=== PATIENT | male | born 1985 | race Caucasian/White ===

== ENCOUNTER 2021-04-08 11:50 | Inpatient (IN) | payer OTHER, SELFPAY ==
[2021-04-08] VITALS (19 sets, daily range): BP systolic 108–150; BP diastolic 60–90; PULSE 94–114; RESP 10–22; TEMP 36.4–37.4; O2SAT 97–100; BMI 28.8
--- NOTE | ~2021-04-08 | CT_ITS ---
EXAMINATION: CT abdomen pelvis wo con EXAM DATE: 04/08/2021 23:57 INDICATION: Diarrhea, fever . TECHNIQUE: Spiral CT of the abdomen and pelvis was performed without contrast. Axial, coronal and s agittal images of the abdomen and pelvis were reviewed. The dose-length product (DLP) for this exami nation was 482.65 mGy-cm. The exposure was tailored according to patient size (auto mA exposure cont rol), and iterative reconstruction (ASIR) was used as additional dose reduction technique. There is no prior study for comparison. FINDINGS: There is mild terminal ileal wall thickening, mild adjacent inflammation. Appearance consis tent with terminal ileitis. Could be infectious or inflammatory bowel disease. There is colonic fluid , correlate for diarrhea or gastroenteritis. Left adrenal calcifications probably from prior adrenal hemorrhage or tuberculosis. Both adrenal glan ds are normal in size. Liver, spleen, pancreas are unremarkable. There is indistinct gallbladder wal l. No calcified cholelithiasis and only mild gallbladder distention. There is no nephrolithiasis or hydronephrosis. The prostate is unremarkable. The bladder is unremarkable. There is no retroperit rajan or pelvic lymphadenopathy. No free intraperitoneal gas. The heart is normal in size. There are no pericardial or pleural effu sions. The lung bases are unremarkable. There are no osteoblastic or osteolytic lesions identified. IMPRESSION: 1. Terminal ileal edema, colonic fluid. Consider infectious terminal ileitis, inflammatory bowel dise ase, gastroenteritis. 2. Indistinct gallbladder wall, could be reactive given no calcified cholelithiasis, significant gall bladder distention or clinically suspicious clinical findings. Reviewed, dictated and finalized at location [facility] [employer] IMPRESSION: 1. Terminal ileal edema, colonic fluid. Consider infectious terminal ileitis, i nflammatory bowel disease, gastroenteritis. 2. Indistinct gallbladder wall, could be reactive given no calcified cholelithi asis, significant gallbladder distention or clinically suspicious clinical find ings.
[2021-04-08 12:34] LABS: Hematocrit 49.1 % (42.0-52.0); Hemoglobin 16.9 g/dL (14.0-18.0); Mean Corpuscular HGB Conc 34.4 g/dl (32-36); Mean Corpuscular Hemoglobin 29.4 pg (26-34); Mean Corpuscular Volume 85.5 fl (80-100); Mean Platelet Volume 8.8 fl (7.4-10.4); Platelet Count Result 192 k/mm3 (150-375); Red Blood Count 5.74 M/mm3 (4.6-6.20); Red Cell Distribution Width 13.5 % (11.5-14.5)
[2021-04-08 13:00] LABS: Alanine Aminotransferase 28 U/L (4-50); Albumin Level 4.4 g/dL (3.5-5.1); Alkaline Phosphatase 57 U/L (38-126); Anion Gap 13 mmol/L (8-16); Aspartate Amino Transferase 33 U/L (17-59); Bilirubin,Total 1.2 mg/dL (0.2-1.3); Blood Urea Nitrogen 24 mg/dL (9-20); Calcium 9.5 mg/dL (8.4-10.2); Carbon Dioxide 22 mmol/L (22-30); Chloride 98 mmol/L (98-107); Estimated CRCL calculation 50 ml/min; Estimated Glomerular Filt Rate 43; Glucose 124 mg/dL (65-110); Lipase 44 U/L (23-300); Potassium 4.1 mmol/L (3.4-5.0); Sodium 133 mmol/L (137-145)
[2021-04-08 13:31] LABS: Atypical Lymphocytes Present; Band Neutrophils Percent 46 % (0-6); Giant Platelets Present; Large Platelets Present; Lymphocytes Absolute Manual 0.84 K/mm3 (1.1-4.5); Monocytes Absolute Manual 0.42 K/mm3 (0.1-0.90); Monocytes Percent Manual 6 % (3-9); Neutrophils Absolute Manual 5.74 K/mm3 (1.3-6.7); Neutrophils Percent Manual 36 % (46-73); Platelet Estimate Adequate (Adequate); Total Cells Counted 100
--- NOTE | 2021-04-08 14:13 | ED.NAVMDI ---
HPI - Nausea/Vomiting/Diarrhea General Chief complaint: Nausea/Vomiting/Diarrhea Stated complaint: diarrhea x 24 hours Time Seen by Provider: 04/08/21 14:03 Source: patient Mode of arrival: ambulatory Limitations: no limitations History of Present Illness HPI Narrative: Patient presents with extensive diarrhea over the last 24 hours, about 40-50 times, vomiting once. Also complaining of possible fever and chills. Patient is fully vaccinated for COVID-19, last one 3 to 4 months ago. Patient also had Covid infection 1 to 2 months ago. Patient still me that he had history of C. difficile 10 years ago of unknown etiology. Related Data Home Medications Medication Instructions Recorded Confirmed No Home Medications 04/08/21 04/08/21 Allergies Allergy/AdvReac Type Severity Reaction Status Date / Time meperidine Allergy Unknown HIVES Verified 04/08/21 13:57 Review of Systems Review of Systems: CONSTITUTIONAL: Denies fever, chills, or sweats. EYES: Denies visual changes, redness, or discharge. ENT: Denies rhinorrhea, congestion, sore throat, or otalgia. CARDIOVASCULAR: Denies chest pain, palpitations, or edema. RESPIRATORY: Denies cough or dyspnea. GASTROINTESTINAL: Denies abdominal pain, nausea, vomiting, or diarrhea. GENITOURINARY: Denies dysuria or hematuria. SKIN: Denies rash or itching. MUSCULOSKELETAL: Denies back pain, joint pain, or myalgia. NEUROLOGIC: Denies headache, numbness, or weakness. PSYCHIATRIC: Denies anxiety or depression. PMFSH Social History Social History Smoking status: Never smoker Alcohol intake: current Exam Narrative: General appearance: Well-developed, well-nourished Skin: Normal color Head: Normocephalic, nontraumatic Eyes: Clear conjunctiva ENT: Oropharynx normal, ears normal, nose normal Neck: Supple, nontender Chest and respiratory: Airway patent, no respiratory distress, no accessory muscle use Heart: Regular rate/rhythm Abdomen: Soft, nontender, no organomegaly, hyperactive bowel sounds Vascular: Normal peripheral pulses, normal capillary refill. Musculoskeletal: Normal range of motion, nontender back Neurologic: Alert and oriented ?3, [employer] is normal as tested, no gross motor deficit Course Course Emergency Course: Improving Vital Signs Vital signs: Vital Signs Pulse Rate 107 H 04/08/21 11:55 Respiratory Rate 20 04/08/21 11:55 Blood Pressure 133/86 04/08/21 11:55 Pulse Oximetry 98 04/08/21 11:55 Pulse Rate 107 H 04/08/21 11:55 Respiratory Rate 20 04/08/21 11:55 Blood Pressure 133/86 04/08/21 11:55 Pulse Oximetry 98 04/08/21 11:55 MDM - Nausea/Vomiting/Diarrhea MDM Narrative Medical decision making narrative: Patient presents with extensive diarrhea. Viral infection is my concern. Labs, IV fluid ordered. Differential diagnosis Differential Diagnosis Differential diagnosis: Likely gastroenteritis, clostridium difficile infection and dehydration Lab Data Result diagrams: 04/08/21 12:26 04/08/21 12:26 Labs: Lab Results 04/08/21 04/08/21 04/08/21 Range/Units 12:26 12:26 14:08 WBC 7.0 (4.5-10.0) K/mm3 RBC 5.74 (4.6-6.20) M/mm3 Hgb 16.9 (14.0-18.0) g/dL Hct 49.1 (42.0-52.0) % MCV 85.5 (80-100) fl MCH 29.4 (26-34) pg MCHC 34.4 (32-36) g/dl RDW 13.5 (11.5-14.5) % Plt Count 192 (150-375) k/mm3 MPV 8.8 (7.4-10.4) fl Immature Gran % (Auto) Not Reportable Neut % (Auto) Not Reportable Lymph % (Auto) Not Reportable [place] % (Auto) Not Reportable Eos % (Auto) Not Reportable Baso % (Auto) Not Reportable
[2021-04-08] MEDS: SODIUM CHLORIDE 0.9% IV 1,000 ML 999 ML IV CONT ×2 (14:32)
[2021-04-08 14:52] LABS: Add Urine Microscopic? YES; Appearance Urine Cloudy (Clear); Bacteria Urine Trace /hpf; Bilirubin Urine Negative (Negative); Blood Urine Negative (Negative); Cellular Casts Urine Present /lpf; Color Urine Amber (Yellow); Glucose Urine UA Negative (Negative); Hyaline Casts Urine 15-19 /lpf; Ketones Urine 1+ mg/dL (Negative); Leukocyte Esterase Ur Negative LEU/UL (Negative); Mucus Urine Few /lpf; Nitrate Urine Negative (Negative); Protein Urine 1+ mg/dL (Negative); RBC Urine 0-2 /hpf (0-2); Specific Grav Ur 1.029 (1.001-1.035); Squamous Epithelial Cell Urine Occasional /hpf (Few)
--- NOTE | 2021-04-08 17:25 | ADMGEN ---
This patient, Tramaine Hein, was admitted to Medical Room 341-01. Patient/family oriented to hospital policies and general routines including ID bracelet, bed and alarms, visiting hours, pain management, procedures, bathroom and other care routines, personal items, smoking policy, room service/diet, and visiting hours. Information on how to activate the Rapid Response Team has been discussed. Patient/Family are encouraged to report perceived risks to care and to ask questions if they do not understand what they are told or what they should do.
--- NOTE | 2021-04-08 18:15 | PM.IMHP ---
H&P: HPI History of Present Illness Date/Time: 04/08/21 18:15 Chief Complaint: Diarrhea. Narrative: This is a 35-year-old male with history of Clostridium difficile diarrhea approximately 10 years ago who presented to the emergency department earlier this afternoon via private vehicle from home for evaluation of diarrhea.Yesterday morning the patient his went on a hike and when he returned home he began having diarrhea which he describes as light brown and watery in nature. The patient estimates that he had between 40 and 50 episodes of diarrhea yesterday and at least 10 today. He has also had chills, sweats, and subjective fever with a temperature of 99.4? F on arrival to the emergency department today. He has ?rumbling? in his abdomen prior to having diarrhea but he denies abdominal pain. He has not had any significant nausea or vomiting. He had nothing to eat the morning of the hike. No recent travel, camping activities, preparation of raw meat or fish, antibiotic use, or sick contacts. He has not noticed any blood or mucus in the stool. Review of Systems Review of Systems: Twelve systems were reviewed. No cold or flu symptoms. He is vaccinated for COVID-19 and in fact he had COVID in January 2021. No cough. No chest pain or shortness of breath. He has noticed that his urine is darker over the last day with a decrease in urine output. He endorses mild body aches. No significant muscle cramping. He denies lightheadedness and dizziness. Except as documented, all other systems were reviewed and are negative. COUNT INCLUDES [facility] Past Medical History Medical History Clostridium difficile diarrhea (~2010) Ventral hernia Surgical History Surgical History (Updated 04/08/21 @ 20:51 by Clare Al PA-C) History of appendectomy Status post repair of complex wound (08/15/06) Debridement of traumatized tissue and V-Y advancement flap reconstruction of left long finger. Family History Family History Son Celiac disease Daughter Celiac disease Social History Social History (Updated 04/08/21 @ 20:52 by Clare Al PA-C) Social History: Surrogate decision maker: Chanel Hein, spouse. Code status: Full code. Smoking status: Never smoker Second hand tobacco smoke exposure: Yes Alcohol intake: never Substance use: never Substance use type: does not use Additional living arrangements comments: The patient lives in [place] with his and their 4 children. Additional occupation/education comments: [employer]. Meds Home Medications and Allergies Home Medications Medication Instructions Recorded Confirmed Type No Home Medications 04/08/21 04/08/21 History Allergies Allergy/AdvReac Type Severity Reaction Status Date / Time meperidine Allergy Unknown HIVES Verified 04/08/21 17:45 Vital Signs Vital Signs - 24 hr 04/08/21 11:55 04/08/21 14:00 04/08/21 14:01 Pulse Rate 107 H 98 104 H Respiratory Rate 20 17 10 L Blood Pressure 133/86 148/84 H Pulse Oximetry 98 100 04/08/21 14:15 04/08/21 14:16 04/08/21 14:30 Pulse Rate 95 99 96 Respiratory Rate 14 18 15 Blood Pressure 125/79 Pulse Oximetry 100 98 99 04/08/21 14:31 04/08/21 14:45 04/08/21 14:46 Pulse Rate 95 95 101 H Respiratory Rate 18 22 H 19 Blood Pressure 131/83 144/77 H Pulse Oximetry 99 99 100 04/08/21 15:00 04/08/21 15:01 04/08/21 15:15 Pulse Rate 95 98 96 Respiratory Rate 16 20 14 Blood Pressure 130/90 Pulse Oximetry 100 100 04/08/21 15:16 04/08/21 15:30 04/08/21 15:31 Pulse Rate 95 103 H 102 H Respiratory Rate 14 13 18 Blood Pressure 114/60 133/87 Pulse Oximetry 100 100 04/08/21 15:45 04/08/21 15:46 Pulse Rate 104 H 107 H Respiratory Rate 16 20 Blood Pressure 113/60 Pulse Oximetry Exam Narrative: General: Mildly ill-appearing male supine in bed. Weight:
[2021-04-08] MEDS: SODIUM CHLORIDE 0.9% IV 1,000 ML 200 ML IV CONT (18:22)
[2021-04-08 20:39] LABS: Hematocrit 42.2 % (42.0-52.0); Hemoglobin 14.6 g/dL (14.0-18.0); Mean Corpuscular HGB Conc 34.6 g/dl (32-36); Mean Corpuscular Hemoglobin 29.8 pg (26-34); Mean Corpuscular Volume 86.1 fl (80-100); Mean Platelet Volume 8.9 fl (7.4-10.4); Platelet Count Result 168 k/mm3 (150-375); Red Cell Distribution Width 13.4 % (11.5-14.5); White Blood Count 4.9 K/mm3 (4.5-10.0)
[2021-04-08 20:50] LABS: Lactic Acid Reflex 0.8 mmol/L (0.7-2.1)
[2021-04-08 20:51] LABS: Anion Gap 9 mmol/L (8-16); Blood Urea Nitrogen 20 mg/dL (9-20); Calcium 8.4 mg/dL (8.4-10.2); Carbon Dioxide 21 mmol/L (22-30); Chloride 103 mmol/L (98-107); Estimated CRCL calculation 63 ml/min; Estimated Glomerular Filt Rate 57; Glucose 116 mg/dL (65-110); Magnesium 1.8 mg/dL (1.6-2.3); Potassium 3.7 mmol/L (3.4-5.0); Sodium 133 mmol/L (137-145)
[2021-04-08 21:15] LABS: Band Neutrophils Percent 60 % (0-6); Lymphocytes Absolute Manual 0.78 K/mm3 (1.1-4.5); Monocytes Absolute Manual 0.34 K/mm3 (0.1-0.90); Monocytes Percent Manual 7 % (3-9); Neutrophils Absolute Manual 3.77 K/mm3 (1.3-6.7); Neutrophils Percent Manual 17 % (46-73); Total Cells Counted 100
[2021-04-08 21:16] LABS: Platelet Estimate Adequate (Adequate)
[2021-04-08] MEDS: SODIUM CHLORIDE 0.9% IV 1,000 ML 150 ML IV CONT ×2 (21:42→21:43)
[2021-04-08] MEDS: metroNIDAZOLE 500 MG/ISO 100ML 500 MG/100 ML BAG 100 MG IVPB (23:13)
[2021-04-09] MEDS: SODIUM CHLORIDE 0.9% IV 1,000 ML 150 ML IV CONT ×2 (02:46→09:01)
[2021-04-09 05:02] VITALS: TEMP 38.2
[2021-04-09] MEDS: metroNIDAZOLE 500 MG/ISO 100ML 500 MG/100 ML BAG 100 MG IVPB ×4 (05:06→23:41)
[2021-04-09 06:00] VITALS: BP 132/59; PULSE 108; RESP 20; TEMP 38.2; O2SAT 96
[2021-04-09 06:25] LABS: Hematocrit 39.4 % (42.0-52.0); Hemoglobin 13.9 g/dL (14.0-18.0); Mean Corpuscular HGB Conc 35.3 g/dl (32-36); Mean Corpuscular Hemoglobin 29.4 pg (26-34); Mean Corpuscular Volume 83.3 fl (80-100); Mean Platelet Volume 9.5 fl (7.4-10.4); Platelet Count Result 163 k/mm3 (150-375); Red Blood Count 4.73 M/mm3 (4.6-6.20); Red Cell Distribution Width 13.2 % (11.5-14.5); White Blood Count 4.4 K/mm3 (4.5-10.0)
[2021-04-09 06:26] LABS: Alanine Aminotransferase 21 U/L (4-50); Albumin Level 3.3 g/dL (3.5-5.1); Alkaline Phosphatase 49 U/L (38-126); Anion Gap 8 mmol/L (8-16); Aspartate Amino Transferase 25 U/L (17-59); Bilirubin,Total 0.5 mg/dL (0.2-1.3); Blood Urea Nitrogen 15 mg/dL (9-20); Carbon Dioxide 19 mmol/L (22-30); Chloride 104 mmol/L (98-107); Estimated CRCL calculation 73 ml/min; Estimated Glomerular Filt Rate > 60; Glucose 106 mg/dL (65-110); Magnesium 1.6 mg/dL (1.6-2.3); Potassium 3.3 mmol/L (3.4-5.0); Sodium 131 mmol/L (137-145)
[2021-04-09 07:33] LABS: Atypical Lymphocytes Present; Band Neutrophils Percent 34 % (0-6); Lymphocytes Absolute Manual 0.88 K/mm3 (1.1-4.5); Metamyelocytes Percent 1 %; Monocytes Absolute Manual 0.22 K/mm3 (0.1-0.90); Monocytes Percent Manual 5 % (3-9); Neutrophils Absolute Manual 3.25 K/mm3 (1.3-6.7); Neutrophils Percent Manual 40 % (46-73); Total Cells Counted 100
[2021-04-09 07:34] LABS: Platelet Estimate Adequate (Adequate)
[2021-04-09] MEDS: POTASSIUM CHLORIDE 20 MEQ TABLET 60 MEQ PO (09:00)
[2021-04-09] MEDS: MAGNESIUM SULFATE 3GM/D5W100ML 3 GM/100 ML BAG IVPB (09:04)
--- NOTE | 2021-04-09 10:24 | PM.IMPN ---
Progress Note: A&P Assessment and Plan (1) Diarrhea: Qualifiers: Diarrhea type: unspecified type Qualified Code(s): R19.7 - Diarrhea, unspecified Code(s): R19.7 - Diarrhea, unspecified Status: Acute Assessment and Plan: The patient reports upwards of 50 to 60 episodes of watery diarrhea over the past 36 hours or so. Suspect infectious given low-grade fever and bandemia. He has been started on metronidazole and levofloxacin pending stool studies. Patient denies much improvement with IV Levaquin and Flagyl Stool cultures are negative for C diff and Cryptosporidium Pending blood cultures, and further stool cultures Pending stool rotavirus and norovirus Will switch to a regular diet and banatrol t.i.d. to help thicken is stools He appears well hydrated at this time with improvement of his renal function and electrolytes. Continue monitoring. (2) Sepsis: Code(s): A41.9 - Sepsis, unspecified organism Status: Acute Assessment and Plan: Meets criteria for sepsis in the setting of fever, tachycardia, bandemia with most likely source being infectious terminal ileitis IV fluids IV antibiotics Blood cultures and stool culture still pending Continue monitoring. (3) Dehydration: Code(s): E86.0 - Dehydration Status: Acute Assessment and Plan: The patient appears quite dehydrated on exam and by labs and he is being aggressively hydrated. (4) Acute kidney injury: Code(s): N17.9 - Acute kidney failure, unspecified Status: Acute Assessment and Plan: Secondary to hypovolemia from GI loss, he is quite dehydrated. Creatinine improved 1.2 today with IV fluids. Will continue with IV fluid hydration at this time and monitor renal function electrolytes. (5) Bandemia: Code(s): D72.825 - Bandemia Status: Acute Assessment and Plan: Blood cultures pending. Lactic acid was normal. Keep monitoring CBC with diff daily. Time Spent With Patient Time with patient: 25 - 35 minutes Subjective Date/time seen: 04/09/21 10:24 Interval history: Date of Service 04/09/21: Patient reports continuing to have diarrhea. He reports 10-15 episodes just this morning. He denies any abdominal pain just diffuse discomfort and ?gurgling?. He has some lack of appetite, but denies any nausea or vomiting. He did have a fever this morning, denies any chest pain, shortness of breath, cough, leg swelling, calf pain, sick contacts, family members with similar issues or any other symptoms at this time. Patient's states they have multiple animals at home which include chickens, bearded Dragon, etc. Review of Systems Review of Systems: All systems reviewed & are unremarkable except as noted in HPI and below Exam Narrative: General: 35-year-old man laying flat in bed with at bedside. Appears comfortable. In no acute distress. Skin: No jaundice or cyanosis. Good skin turgor. Neck: Full range of motion. Supple. Respiratory: Lungs are clear to auscultation bilaterally. No bony chest wall tenderness. Cardiovascular: The heart has a regular rate and rhythm without murmur. Lower extremities: No lower extremity edema. Distal pulses are easily palpated. No calf tenderness to palpation. Gastrointestinal: No specific TTP on exam. Bowel sounds active but does not appear hyperactive. The abdomen is soft, nondistended. Psychiatric: Lucid and oriented. Memory intact. Neurologic: No focal deficits. Speech is clear. No facial drooping. Objective Data Vital Signs Vital Signs: Vital Signs - 24 hr 04/08/21 11:55 04/08/21 14:00 04/08/21 14:01 Temperature Pulse Rate 107 H 98 104 H Respiratory Rate 20 17 10 L Blood Pressure 133/86 148/84 H Pulse Oximetry 98 100 04/08/21 14:15 04/08/21 14:16 04/08/21 14:30 Temperature Pulse Rate 95 99 96 Respiratory Rate 14 18 15 Blood Pressure 125/79 Pulse Oximetry 100 98 99 1
[2021-04-09 14:13] VITALS: BP 110/64; PULSE 89; RESP 18; TEMP 36.9; O2SAT 99
[2021-04-09 14:32] LABS: Anion Gap 7 mmol/L (8-16); Blood Urea Nitrogen 14 mg/dL (9-20); Calcium 8.1 mg/dL (8.4-10.2); Carbon Dioxide 23 mmol/L (22-30); Chloride 105 mmol/L (98-107); Estimated CRCL calculation 68 ml/min; Estimated Glomerular Filt Rate > 60; Glucose 98 mg/dL (65-110); Potassium 3.8 mmol/L (3.4-5.0); Sodium 135 mmol/L (137-145)
[2021-04-09 19:18] VITALS: BP 102/64; PULSE 83; RESP 16; TEMP 36.5; O2SAT 98
[2021-04-09 20:00] VITALS: PULSE 83; RESP 16; O2SAT 98
[2021-04-09] MEDS: SODIUM CHLORIDE 0.9% IV 1,000 ML 85 ML IV CONT (21:22)
[2021-04-10 04:22] VITALS: BP 98/54; PULSE 77; RESP 17; TEMP 36.5; O2SAT 98
[2021-04-10 04:48] LABS: Basophils Absolute Auto 0.1 K/mm3 (0.0-0.1); Basophils Percent Auto 0.8 % (0.2-1.2); Eosinophils Absolute Auto 0.2 K/mm3 (0-0.3); Eosinophils Percent Auto 3.4 % (0-4.4); Hematocrit 39.9 % (42.0-52.0); Immature Granulocyte Absolute 0.03 K/mm3 (0.00-0.031); Immature Granulocyte Percent A 0.5 % (0-0.5); Lymphocytes Absolute Auto 1.25 K/mm3 (0.9-3.2); Lymphocytes Percent Auto 21.1 % (18.3-44.2); Mean Corpuscular HGB Conc 35.1 g/dl (32-36); Mean Corpuscular Hemoglobin 29.8 pg (26-34); Mean Corpuscular Volume 84.9 fl (80-100); Mean Platelet Volume 9.3 fl (7.4-10.4); Monocytes Absolute Auto 0.6 K/mm3 (0.1-0.6); Monocytes Percent Auto 10.5 % (2.6-8.5); Neutrophils Absolute Auto 3.8 K/mm3 (1.3-6.7); Neutrophils Percent Auto 63.7 % (45.5-73.1); Platelet Count Result 177 k/mm3 (150-375); Red Cell Distribution Width 13.6 % (11.5-14.5); White Blood Count 5.9 K/mm3 (4.5-10.0)
[2021-04-10 05:03] LABS: Anion Gap 8 mmol/L (8-16); Blood Urea Nitrogen 11 mg/dL (9-20); Calcium 8.1 mg/dL (8.4-10.2); Carbon Dioxide 23 mmol/L (22-30); Chloride 107 mmol/L (98-107); Estimated CRCL calculation 87 ml/min; Estimated Glomerular Filt Rate > 60; Glucose 89 mg/dL (65-110); Potassium 3.8 mmol/L (3.4-5.0); Sodium 138 mmol/L (137-145)
[2021-04-10] MEDS: metroNIDAZOLE 500 MG/ISO 100ML 500 MG/100 ML BAG 100 MG IVPB ×4 (05:52→23:40)
[2021-04-10 10:33] VITALS: O2SAT 97
--- NOTE | 2021-04-10 11:15 | PM.IMPN ---
Progress Note: A&P Assessment and Plan (1) Diarrhea: Qualifiers: Diarrhea type: unspecified type Qualified Code(s): R19.7 - Diarrhea, unspecified Code(s): R19.7 - Diarrhea, unspecified Status: Acute Assessment and Plan: The patient reports upwards of 50 to 60 episodes of watery diarrhea over the past 36 hours or so. Suspect infectious given low-grade fever and bandemia. He has been started on metronidazole and levofloxacin pending stool studies. He is having some improvement with IV Levaquin and Flagyl at this time Stool cultures are negative for C diff and Cryptosporidium Blood cultures negative to date Pending stool rotavirus and norovirus Will switch to a regular diet and we are out of banatrol. Will order Fiber to help bulken stool. He appears well hydrated at this time with improvement of his renal function and electrolytes. Will continue IV fluids since he is still having 20-25 episodes of diarrhea to prevent dehydration Continue monitoring. (2) Sepsis: Code(s): A41.9 - Sepsis, unspecified organism Status: Acute Assessment and Plan: Meets criteria for sepsis in the setting of fever, tachycardia, bandemia with most likely source being infectious terminal ileitis No more bandemia. Labs stable, vitals stable. Continue IV fluids IV antibiotics Continue monitoring. (3) Dehydration: Code(s): E86.0 - Dehydration Status: Acute Assessment and Plan: The patient appears quite dehydrated on arrival. Much improved at this time. Concerned he would get dehydration with continued diarrhea if we were to stop IV fluids. (4) Acute kidney injury: Code(s): N17.9 - Acute kidney failure, unspecified Status: Acute Assessment and Plan: Secondary to hypovolemia from GI loss, he is quite dehydrated. Creatinine improved 1.0 today with IV fluids. Will continue with IV fluid hydration at this time and monitor renal function electrolytes. (5) Bandemia: Code(s): D72.825 - Bandemia Status: Acute Assessment and Plan: Blood cultures pending. Lactic acid was normal. Resolved. Time Spent With Patient Time with patient: 25 - 35 minutes Subjective Date/time seen: 04/10/21 11:15 Interval history: Date of Service 04/10/21: Patient reports continuing to have diarrhea, but states in the last 24 hours has had 20-25 bowel movement which is an improvement from 40-50 from the day prior. He is feeling better, continues to have abdominal cramping. Eating and drinking well. Denies lightheadedness, dizziness, nausea or vomiting. He denies anymore fevers but states he was taking Tylenol overnight to help him sleep. Denies any chest pain, shortness of breath, cough, leg swelling, calf pain, sick contacts, family members with similar issues or any other symptoms at this time. Patient's states they have multiple animals at home which include chickens, bearded Dragon, etc. Review of Systems Review of Systems: All systems reviewed & are unremarkable except as noted in HPI and below Exam Narrative: General: 35-year-old man laying flat in bed watching TV. Appears comfortable. In no acute distress. Skin: No jaundice or cyanosis. Good skin turgor. Neck: Full range of motion. Supple. Respiratory: Lungs are clear to auscultation bilaterally. No bony chest wall tenderness. Cardiovascular: The heart has a regular rate and rhythm without murmur. Lower extremities: No lower extremity edema. Distal pulses are easily palpated. No calf tenderness to palpation. Gastrointestinal: No specific TTP on exam. Bowel sounds active in all 4 quadrants. The abdomen is soft, nondistended. Psychiatric: Lucid and oriented. Memory intact. Neurologic: No focal deficits. Speech is clear. No facial drooping. Objective Data Vital Signs Vital Signs: Vital Signs - 24 hr 04/09/21 14:13 04/09/21 19:18 04/09/21 20:00 Temperature 98.5 F
[2021-04-10] MEDS: SODIUM CHLORIDE 0.9% IV 1,000 ML 85 ML IV CONT (11:45)
[2021-04-10] MEDS: calcium polycarbophiL 625 MG TABLET PO ×2 (13:30→18:09)
[2021-04-10 14:20] VITALS: BP 100/51; PULSE 85; RESP 16; TEMP 36.9; O2SAT 100
[2021-04-10 20:00] VITALS: PULSE 85; RESP 16; O2SAT 100
[2021-04-10 20:21] VITALS: PULSE 82; RESP 16; O2SAT 97
[2021-04-10 20:31] VITALS: BP 106/58; PULSE 89; RESP 18; TEMP 36.9; O2SAT 98
[2021-04-11] MEDS: SODIUM CHLORIDE 0.9% IV 1,000 ML 100 ML IV CONT (03:44)
[2021-04-11] MEDS: metroNIDAZOLE 500 MG/ISO 100ML 500 MG/100 ML BAG 100 MG IVPB ×2 (05:52→12:31)
[2021-04-11 05:57] VITALS: BP 125/65; PULSE 80; RESP 17; TEMP 36.6; O2SAT 98
[2021-04-11 06:00] LABS: Basophils Absolute Auto 0.1 K/mm3 (0.0-0.1); Basophils Percent Auto 0.6 % (0.2-1.2); Eosinophils Absolute Auto 0.3 K/mm3 (0-0.3); Eosinophils Percent Auto 3.3 % (0-4.4); Hematocrit 38.1 % (42.0-52.0); Hemoglobin 13.4 g/dL (14.0-18.0); Immature Granulocyte Absolute 0.05 K/mm3 (0.00-0.031); Immature Granulocyte Percent A 0.6 % (0-0.5); Lymphocytes Absolute Auto 1.53 K/mm3 (0.9-3.2); Lymphocytes Percent Auto 16.9 % (18.3-44.2); Mean Corpuscular HGB Conc 35.2 g/dl (32-36); Mean Corpuscular Hemoglobin 29.8 pg (26-34); Mean Corpuscular Volume 84.7 fl (80-100); Mean Platelet Volume 9.1 fl (7.4-10.4); Monocytes Absolute Auto 0.9 K/mm3 (0.1-0.6); Monocytes Percent Auto 9.5 % (2.6-8.5); Neutrophils Absolute Auto 6.2 K/mm3 (1.3-6.7); Neutrophils Percent Auto 69.1 % (45.5-73.1); Platelet Count Result 204 k/mm3 (150-375); Red Cell Distribution Width 13.8 % (11.5-14.5)
[2021-04-11 06:12] LABS: Anion Gap 11 mmol/L (8-16); Blood Urea Nitrogen 6 mg/dL (9-20); Calcium 8.1 mg/dL (8.4-10.2); Carbon Dioxide 23 mmol/L (22-30); Chloride 106 mmol/L (98-107); Estimated CRCL calculation 87 ml/min; Estimated Glomerular Filt Rate > 60; Glucose 95 mg/dL (65-110); Magnesium 1.6 mg/dL (1.6-2.3); Potassium 3.6 mmol/L (3.4-5.0); Sodium 140 mmol/L (137-145)
[2021-04-11] MEDS: POTASSIUM CHLORIDE 20 MEQ TABLET 40 MEQ PO (09:09)
[2021-04-11] MEDS: calcium polycarbophiL 625 MG TABLET PO (09:09)
[2021-04-11] MEDS: MAGNESIUM SULFATE 3GM/D5W100ML 3 GM/100 ML BAG IVPB (09:44)
--- NOTE | 2021-04-11 10:19 | PM.IMPN ---
Progress Note: A&P Assessment and Plan (1) Diarrhea: Qualifiers: Diarrhea type: unspecified type Qualified Code(s): R19.7 - Diarrhea, unspecified Code(s): R19.7 - Diarrhea, unspecified Status: Acute Assessment and Plan: The patient reports upwards of 50 to 60 episodes of watery diarrhea over the past 36 hours or so. Suspect infectious given low-grade fever and bandemia. He has been started on metronidazole and levofloxacin pending stool studies. He is having some improvement with IV Levaquin and Flagyl # Stool cultures are negative for C diff and Cryptosporidium Blood cultures negative to date Pending stool rotavirus and norovirus Will switch to a regular diet and we are out of banatrol. Continue on Fiber to help bulken stool. He appears well hydrated at this time with improvement of his renal function and electrolytes. Will discontinue IV fluids at this time and monitor hydration and BP Consulted Dr. Stephane BLOCK for further evaluation and recommendations due to Terminal ileitis? possible Crohn's? Diarrhea assistance. Continue monitoring. (2) Ileitis, terminal: Code(s): K50.00 - Crohn's disease of small intestine without complications Status: Acute Assessment and Plan: See above (3) Sepsis: Code(s): A41.9 - Sepsis, unspecified organism Status: Acute Assessment and Plan: Meets criteria for sepsis in the setting of fever, tachycardia, bandemia with most likely source being infectious terminal ileitis No more bandemia. Labs stable, vitals stable. Discontinue IV fluids IV antibiotics Continue monitoring. (4) Dehydration: Code(s): E86.0 - Dehydration Status: Acute Assessment and Plan: The patient was quite dehydrated on arrival. Much improved at this time. Will D/c IV fluids (5) Acute kidney injury: Code(s): N17.9 - Acute kidney failure, unspecified Status: Acute Assessment and Plan: Secondary to hypovolemia from GI loss, he is quite dehydrated. Creatinine stable 1.0 today Continue monitoring renal function electrolytes. (6) Bandemia: Code(s): D72.825 - Bandemia Status: Acute Assessment and Plan: Blood cultures show no growth at this time. Lactic acid was normal. Resolved. Time Spent With Patient Time with patient: 25 - 35 minutes Subjective Date/time seen: 04/11/21 10:19 Interval history: Date of Service 04/11/21: Patient reports improvement of his diarrhea. States he only had 2 episodes overnight, and 2 this morning so far. It is becoming less frequent, less watery, but still not back to normal. He is feeling better, continues to have abdominal cramping. Eating and drinking well. Denies lightheadedness, dizziness, nausea or vomiting. He denies anymore fevers. Denies any chest pain, shortness of breath, cough, leg swelling, calf pain, sick contacts, family members with similar issues or any other symptoms at this time. Patient's states they have multiple animals at home which include chickens, bearded Dragon, etc. Review of Systems Review of Systems: All systems reviewed & are unremarkable except as noted in HPI and below Exam Narrative: General: 35-year-old man sitting up in bed watching TV. Appears comfortable. In no acute distress. Skin: No jaundice or cyanosis. Good skin turgor. Neck: Full range of motion. Supple. Respiratory: Lungs are clear to auscultation bilaterally. No bony chest wall tenderness. Cardiovascular: The heart has a regular rate and rhythm without murmur. Lower extremities: No lower extremity edema. Distal pulses are easily palpated. No calf tenderness to palpation. Gastrointestinal: No specific TTP on exam. Bowel sounds active in all 4 quadrants. The abdomen is soft, nondistended. Psychiatric: Lucid and oriented. Memory intact. Neurologic: No focal deficits. Speech is clear. No facial drooping. Objective Da
--- NOTE | 2021-04-11 10:43 | WPDGICN ---
Assessment and Plan Assessment and plan (1) Diarrhea: Qualifiers: Diarrhea type: unspecified type Qualified Code(s): R19.7 - Diarrhea, unspecified Code(s): R19.7 - Diarrhea, unspecified Status: Acute Assessment and Plan: finally getting better with medical treatment most likely infections etiology (acute onset and came in with fever, bandemia and dehydration)- improving stool samples thus far negative (2) Sepsis: Code(s): A41.9 - Sepsis, unspecified organism Status: Acute Assessment and Plan: on admission and now resolved (3) Bandemia: Code(s): D72.825 - Bandemia Status: Acute (4) Acute kidney injury: Code(s): N17.9 - Acute kidney failure, unspecified Status: Acute Assessment and Plan: resolved after medical treatment (5) Ileitis, terminal: Code(s): K50.00 - Crohn's disease of small intestine without complications Status: Acute Assessment and Plan: most likely infection related, no more abdominal pain now (6) Dehydration: Code(s): E86.0 - Dehydration Status: Acute Assessment and Plan: resolved tolerating diet GI Consult Note Consult date/time: 04/11/21 10:43 Reason for consult: diarrhea HPI: Tramaine Hein is a 35 year old male here for new onset of severe diarrhea 3 days ago after he returned from hiking with his . He had multiple episodes of watery diarrhea with abdominal discomfort, finally came to ER because also had subjective fever with chills. He was found to be dehydrated with creatinine 1.8, normal wbc but bandemia, started on fluids, admitted to floor and given antibiotics. Denies sick contacts, did not try any new meals. He says that diarrhea slowing down and feeling better, no more abdominal pain. Stool samples no growth thus far. He had colonoscopy about 5 years ago for alternating constipation and diarrhea and was told that normal. He says that at baseline will have one BM a day, sometimes constipation. Two of his children with celiac disease. CT scan a/p reviewed, Terminal ileal edema, colonic fluid. Consider infectious terminal ileitis, inflammatory bowel disease, gastroenteritis. Review of Systems Constitutional: Constitutional: Reports chills Eyes: Eyes: Denies blurry vision ENT: Reports Normal hearing present Cardiovascular: Cardiovascular: Denies chest pain Respiratory: Respiratory: Denies dyspnea Gastrointestinal: Gastrointestinal: Reports abdominal pain and Reports diarrhea Genitourinary: Genitourinary: Denies dysuria Musculoskeletal: Musculoskeletal: Denies neck pain Integumentary/Breasts: Skin/Breast: Denies dry skin Neurologic: Denies headache(s) Psychiatric: Psychiatric: Reports no additional psychiatric complaints [facility] Past Medical History Medical History (Updated 04/11/21 @ 10:22 by Aarti Santoro PA-C) Clostridium difficile diarrhea (~2010) Ventral hernia Surgical History Surgical History (Updated 04/08/21 @ 20:51 by Clare Al PA-C) History of appendectomy Status post repair of complex wound (08/15/06) Debridement of traumatized tissue and V-Y advancement flap reconstruction of left long finger. Family History Family History Son Celiac disease Daughter Celiac disease Social History Social History (Updated 04/08/21 @ 20:52 by Clare Al PA-C) Social History: Surrogate decision maker: Chanel Hein, spouse. Code status: Full code. Smoking status: Never smoker Second hand tobacco smoke exposure: Yes Alcohol intake: never Substance use: never Substance use type: does not use Additional living arrangements comments: The patient lives in [place] with his and their 4 children. Additional occupation/education comments: [employer]. Meds Home Medications and Allergies Home Medications Medication Instructions Recor
--- NOTE | 2021-04-11 13:38 | PM.DS ---
DS: Admitting Diagnosis Discharge Date 04/11/21 Admitting Diagnosis Diarrhea DS: Discharge Diagnosis Discharge Diagnosis (1) Diarrhea: Qualifiers: Diarrhea type: unspecified type Qualified Code(s): R19.7 - Diarrhea, unspecified Code(s): R19.7 - Diarrhea, unspecified Status: Acute Assessment and Plan: The patient is a healthy 35 year old man with no chronic medical history, who presented to the ER with diarhea. The patient reports upwards of 50 to 60 episodes of watery diarrhea over the past 36 hours or so. Suspect infectious given low-grade fever and bandemia. He has been started on metronidazole and levofloxacin and admitted into the hospital for further monitoring. Stool cultures returned and showing he has Salmonella. He will be discharged with 7 more days of PO Levaquin for a total of 10 days of therapy. Also given probiotic and fiber BID. Told him to stay hydrated and return to ER warnings given for any dehydration symptoms, worsening diarrhea or any other concerning symptoms. Follow up with PCP in [address] Calderón phone number for follow up with continued GI issues. Appreciated his input and Dr. Calderón ordered Celiac testing which is pending at this time. Blood cultures negative to date. Pending stool rotavirus and norovirus. He is stable at this time for discharge home. He understands and agrees with the plan. All questions answered. (2) Ileitis, terminal: Code(s): K50.00 - Crohn's disease of small intestine without complications Status: Acute Assessment and Plan: See above (3) Sepsis: Code(s): A41.9 - Sepsis, unspecified organism Status: Acute (4) Dehydration: Code(s): E86.0 - Dehydration Status: Acute (5) Acute kidney injury: Code(s): N17.9 - Acute kidney failure, unspecified Status: Acute (6) Bandemia: Code(s): D72.825 - Bandemia Status: Acute DS: Summary Hospital Course Hospital Course: See above Status at Discharge Cognitive/behavioral status at discharge: Stable, improved. Time Spent with Patient Time attestation: Total time spent providing and/or coordinating discharge services: 42 Time spent: Greater than 30 minutes Exam Narrative: General: 35-year-old man sitting up in bed watching TV. Appears comfortable. In no acute distress. Skin: No jaundice or cyanosis. Good skin turgor. Neck: Full range of motion. Supple. Respiratory: Lungs are clear to auscultation bilaterally. No bony chest wall tenderness. Cardiovascular: The heart has a regular rate and rhythm without murmur. Lower extremities: No lower extremity edema. Distal pulses are easily palpated. No calf tenderness to palpation. Gastrointestinal: No specific TTP on exam. Bowel sounds active in all 4 quadrants. The abdomen is soft, nondistended. Psychiatric: Lucid and oriented. Memory intact. Neurologic: No focal deficits. Speech is clear. No facial drooping. DS: Data Data Completed and Pending Labs on day of discharge: Labs from last 24 hours 04/11/21 04/11/21 04/11/21 11:39 05:28 05:28 WBC 9.0 RBC 4.50 L Hgb 13.4 L Hct 38.1 L MCV 84.7 MCH 29.8 MCHC 35.2 RDW 13.8 Plt Count 204 MPV 9.1 Immature Gran % (Auto) 0.6 H Neut % (Auto) 69.1 Lymph % (Auto) 16.9 L Collin % (Auto) 9.5 H Eos % (Auto) 3.3 Baso % (Auto) 0.6 Lymph # (Auto) 1.53 Collin # (Auto) 0.9 H Eos # (Auto) 0.3 Baso # (Auto) 0.1 Abs Immat Gran (auto) 0.05 H Absolute Neuts (auto) 6.2 Absolute Nucleated RBC 0.0 Nucleated RBC % 0.0 Sodium 140 Potassium 3.6 Chloride 106 Carbon Dioxide 23 Anion Gap 11 BUN 6 L D Creatinine 1.00 Estim Creat Clear Calc 87 Estimated GFR > 60 Glucose 95 Calcium 8.1 L Magnesium 1.6 Reticulin IgG Antibody Pending Reticulin IgA Antibody Pending Tiss Transglut IgA Comm Pending Anti-Gliadin IgG
[2021-04-13 14:31] LABS: Norovirus RNA PCR, Stool NOT DETECTED
[2021-04-13 18:26] LABS: Rotavirus Stool Not Detected
[2021-04-16 19:35] LABS: Gliadin AB, IgG <1.0 U/mL (<15.0); Reticulin IgA Negative (Negative); TTG IGA AB <1.0 U/mL (<15.0)
--- NOTE | 2021-04-19 12:57 | PC.NURSE ---
Celiac testing is negative.
== END 2021-04-11 14:30 | disposition home or self-care (01) | DRG 872 ==
LOC: ANHED 16:21 → ANH3MED 16:49
PROVIDERS: Internal Medicine Gastroenterology; Physician Assistant; Admitting Provider Family Medicine; Emergency Provider Emergency Medicine; Visit Provider Family Medicine
DX: A02.1 Salmonella sepsis (principal); A02.0 Salmonella enteritis; K50.018 Crohn's disease of small intestine with other complication; N17.9 Acute kidney failure, unspecified; E87.1 Hypo-osmolality and hyponatremia; A08.8 Other specified intestinal infections; E86.0 Dehydration; D72.825 Bandemia; K43.9 Ventral hernia without obstruction or gangrene; Z90.49 Acquired absence of other specified parts of digestive tract; Z86.16 Personal history of COVID-19
CPT/HCPCS: 36415; 74176; 80048; 80053; 80076; 81001; 83516; 83605; 83690; 83735; 84443; 85025; 86255; 87015; 87040; 87045; 87086; 87186; 87269; 87272; 87324; 87425; 87427; 87798; 89055; 96361; 96365; 96366; 96367; 96375; 99285; A9270; G0378; J0131; J1956; J3475; J7030